=== PATIENT | female | born 1945 | race Two or more races ===

== ENCOUNTER 2017-02-20 18:53 | Inpatient (IN) | payer MEDICAID ==
[~2017-02-20] VITALS: Ht 157.5 cm; Wt 67.3 kg
[~2017-02-20 18:53] MED LIST: ACYCLOVIR800 MG PO; AMLODIPINE BESY10 M1 PO; ASPIR 8181 MG PO; DICLOFENAC SOD2.5 ML TOP; FLEXERIL10 MG PO; HYDROCODONE/ACE1 TA2 PO; HYDROCORTISONE11; LAC PO; MAC100 PO; NAPROXEN500 MG PO; NEU300 PO; NORCO1 TA2 PO; PEPCID40 MG PO; [UNRECOGNIZED DRUG - OTHER] OS
--- NOTE | 2017-02-20 19:29 | NUR ---
PT SITTING UP ON EDGE OF BED, AAOX4 WITH C/O PRESSURE LIKE CP 10/10 TO LT CHEST RADIATING TO LT SHOULDER. PT DENIES SOB OR DIZZINESS WITH PAIN. PT STATED HAVING PAIN COME INTERMITTANTLY X 1 WEEK. FAMILY AT BEDSIDE.
[2017-02-20 20:22] LABS: BASOPHIL % 0.4 % (0-2); PLATELET COUNT 302 x10^3mcL (130-400); RED CELL DISTRIBUTION WIDTH 14.5 % (11.5-14.5)
[2017-02-20 20:36] LABS: CALCIUM 9.1 mg/dL (8.5-10.1); CARBON DIOXIDE 28.2 mmol/L (21-32); CHLORIDE SERUM 104 mmol/L (98-107); CREATININE SERUM 0.8 mg/dL (0.6-1.0); GLUCOSE SERUM 118 mg/dL (74-106); POTASSIUM SERUM 4.6 mmol/L (3.5-5.1); SODIUM SERUM 140 mmol/L (136-145)
--- NOTE | 2017-02-20 20:40 | NUR ---
NITRO DRIP STARTED AT 10MCG WITH BP OF 183/102 (142).
[2017-02-20 20:41] LABS: ALKALINE PHOSPHATASE 73 U/L (46-116); ALT/SGPT 19 U/L (14-59); AST/SGOT 19 U/L (15-37); BILIRUBIN TOTAL 0.35 mg/dL (0.20-1.00); TOTAL PROTEIN, SERUM 7.8 g/dL (6.4-8.2)
--- NOTE | 2017-02-20 21:00 | NUR ---
NITRO TITRATED UP FROM 10MCG/MIN TO 15MCG/MIN. BP 172/113 MAP 138.
[2017-02-20 21:06] LABS: ALBUMIN 3.8 g/dL (3.4-5.0)
--- NOTE | 2017-02-20 21:22 | NUR ---
PER DR PANCHAL, INCREASE NITRO DRIP RATE TO 25MCG WITH PT BP NOTED 162/108 AT THIS TIME.
--- NOTE | 2017-02-20 21:30 | NUR ---
PT STATES TO INTERMITTENT PAIN RATING 5/[address] PANCHAL, D/C NITRO DRIP AND CONTINUE NITRO SUBLINGUAL Q5MIN UNTIL MAP IS BETWEEN 100-105.
--- NOTE | 2017-02-20 21:38 | NUR ---
PT FAMILY DOES NOT RECALL HOME MEDICATIONS. PER FAMILY, PT TAKES ASPIRIN AND BP MED.
--- NOTE | 2017-02-20 21:45 | NUR ---
REPORT GIVEN TO SHELBIE NOBLES
--- NOTE | 2017-02-20 21:56 | NUR ---
NO MORE NITRO TABS TO BE GIVEN. PT MAP NOW 101. OK FOR PT TO GO TO TELE FLOOR.
--- NOTE | 2017-02-20 22:01 | NUR ---
REC'D PT FROM ER VIA [facility]. PT IS AAOX4. TELE #16 SR. C/O 5/10 CHEST PAIN. RESP EVEN AND UNLABORED. NO SOB NOTED. TRACE EDEMA TO BLE. IV NOTED TO LFA. INTACT AND PATENT. ORIENTED PT TO CALL LIGHT. BED IN LOWEST POSITION. WILL ENDORSE TO PRIMARY RN.
[2017-02-20 22:14] VITALS: BP 151/84
[2017-02-20 22:19] VITALS: BP 151/84
[2017-02-21 00:01] VITALS: BP 139/76
--- NOTE | 2017-02-21 00:01 | NUR ---
Patients BP 139/74 (96), HR 62/min. Pt has Vasotec IV order but no parameter. Dr. Dow made aware of pts BP. Order not to give Vasotec at this time and order to check VS in 2hrs and to inform Dr. Dow. Primary RN Shikha made aware.
[2017-02-21] MEDS ORDERED: LISINOPRIL40 MG PO (01:13)
--- NOTE | 2017-02-21 01:50 | NUR ---
D-DIMER 899, DT SPELTE MADE AWARE. NO NEW ORDERS GIVEN. VITAL SIGNS TAKEN ES=894/74(84) , HR-58, R=20, O2 SAT=96% ON ROOM AIR. DENIES ANY PAIN/DISCOMFORT AT THIS TIME. ASSISTED TO BATHROOM FOR PERSONAL NEEDS. KEPT CLEAN AND DRY.
[2017-02-21 02:00] LABS: PHOSPHOROUS 3.5 mg/dL (2.5-4.9)
[2017-02-21 02:01] LABS: CHOLESTEROL/HDL RATIO 4.9
[2017-02-21 02:08] LABS: FREE T4 0.85 ng/dL (0.76-1.46); FREE THYROXINE INDEX 2.5 ug/dL (1.4-4.5); T4(THYROXINE) 7.8 ug/dL (4.7-13.3)
[2017-02-21 02:09] VITALS: BP 126/74
[2017-02-21 03:00] LABS: T3 TOTAL 1.06 ng/mL
[2017-02-21 05:34] VITALS: BP 129/74
[2017-02-21 06:25] LABS: BASOPHIL % 0.3 % (0-2); PLATELET COUNT 256 x10^3mcL (130-400); RED CELL DISTRIBUTION WIDTH 14.4 % (11.5-14.5)
[2017-02-21 06:32] LABS: CALCIUM 8.4 mg/dL (8.5-10.1); CARBON DIOXIDE 25.8 mmol/L (21-32); CHLORIDE SERUM 107 mmol/L (98-107); CREATININE SERUM 0.8 mg/dL (0.6-1.0); GLUCOSE SERUM 94 mg/dL (74-106); POTASSIUM SERUM 3.7 mmol/L (3.5-5.1); SODIUM SERUM 141 mmol/L (136-145)
--- NOTE | 2017-02-21 06:35 | NUR ---
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 INSTRUCTED TO COLLECT SPECIMENT FOR UA/UDS,, VERBALIZED UNDERSTANDING. DENIES ANY CHEST PAIN AT THIS TIME. APPARENTLY COMFORTABLE LYING IN BED. ALL NEEDS ATTENDED.
--- NOTE | 2017-02-21 07:40 | NUR ---
RC'D PT RESTING IN BED WITH NO APPARENT SIGNS OF DISTRESS. A/A/O/X4, SPEECH CLEAR AND APPROPRIATE. ON TELE 16 WITH NSR. PT REPORTS CHEST PAIN IN THE MORNING BUT DENIES AT THIS TIME. REPORTS INTERMITTENT CHEST PAIN AT TIMES. PALP PULSES, TRACE EDEMA ON BLE. RESPIRATIONS EQUAL AND UNLABORED. LUNGS CTA. ON RA, DENIES SOB. ABDOMEN SOFT AND NONTEDER. ACITVE BS. DENIES N/V. VOIDS FREELY, DENIES BURNING. GENERALIZED WEAKNESS. AMBULATORY WITH ASSIT. SKIN W/D/I. DENIES PAIN AT THIS TIME. IV PATENT AND INFUSING. BED IN LOW POSITION. EDUCATED ON USING CALL LIGHT WHEN NEEDING ASSISTANCE. CALL LIGHT IN REACH. WILL CONTINUE TO MONITOR.
--- NOTE | 2017-02-21 09:30 | NUR ---
MORNING MEDS NOT GIVEN DUE TO PT BEING NPO FOR CT. DR LOJA AWARE AND VERBALIZED OKAY TO HOLD AT THIS TIME.
--- NOTE | 2017-02-21 09:45 | NUR ---
HEPARIN DRIP STARTED PER DR TINSLEY ORDER. ELEVATED D-DIMER. LOADING DOSE OF 5400 UNITS. INITIAL IV INFUSION 1200 UNITS. SHELBIE HERRING AT BEDSIDE TO VERIFY AND COSIGN. PT TOLERATED WELL. PT AND FAMILY VERBALIZED NEED FOR HEPARIN PROTOCOL AT THIS TIME. BED IN LOW POSITION. CALL LIGHT IN REACH. FAMILY PRESENT AT BEDSIDE. WILL CONTINUE TO MONITOR.
[2017-02-21 09:52] VITALS: BP 148/75
[2017-02-21 13:00] VITALS: BP 147/86
[2017-02-21] MEDS ORDERED: LIPI10 PO (13:27)
[2017-02-21 13:31] VITALS: BP 148/75
--- NOTE | 2017-02-21 16:47 | NUR ---
PT PROVIDED WITH DC HOME INSTRUCTIONS. GIVEN MEDICATION EDUCATION. MADE AWARE PRESCRIPTIONS HAVE BEEN SENT TO PT'S SELECTED PHARMACY. MADE AWARE OF FOLLOW UP APPT WITH PCP. INSTRUCTED ON IMPORTANCE OF FOLLOWING MEDICATIONS PER DRS ORDERS. MADE AWARE OF WORSENING SIGNS AND SYMPTOMS TO RETURN TO ED OR REPORT TO PCP. PT VERBALIZED UNDERSTANDING OF INSTRUCTIONS. TELE AND IV DC'D, CATHETER INTACT. PT TRANSPORTED VIA WC TO THE LOBBY WITH ALL PERSONAL BELONGINGS IN HAND ACCOMPANIED BY REPORTING ANALYST AND FAMILY FREE OF ANY APPARENT DISTRESS.
== END 2017-02-21 16:47 | disposition home or self-care (01) | DRG 243 ==
LOC: ED 18:53 → DU 21:29
PROVIDERS: Emergency Medicine; ADMIT Family Medicine
DX: K21.9 Gastro-esophageal reflux disease without esophagitis (principal); E66.3 Overweight; I16.0 Hypertensive urgency; Z68.29 Body mass index [BMI] 29.0-29.9, adult; Z96.642 Presence of left artificial hip joint
CPT/HCPCS: 83880; 84439; 85378; 90658; J1644; J3490; J7030; Q0092; Q9967

== ENCOUNTER 2017-10-21 21:18 | Emergency (ER) | payer MEDICAID ==
[~2017-10-21 21:18] MED LIST changes: +LIPI10 PO; +LISINOPRIL40 MG PO
[2017-10-21 23:23] LABS: CALCIUM 9.3 mg/dL (8.5-10.1); CARBON DIOXIDE 29.5 mmol/L (21-32); CHLORIDE SERUM 103 mmol/L (98-107); CREATININE SERUM 0.9 mg/dL (0.6-1.0); GLUCOSE SERUM 104 mg/dL (74-106); POTASSIUM SERUM 3.6 mmol/L (3.5-5.1); SODIUM SERUM 139 mmol/L (136-145)
[2017-10-21 23:28] LABS: ALBUMIN 3.5 g/dL (3.4-5.0); ALKALINE PHOSPHATASE 92 U/L (46-116); ALT/SGPT 16 U/L (14-59); AST/SGOT 25 U/L (15-37); BASOPHIL % 0.4 % (0-2); BILIRUBIN TOTAL 0.26 mg/dL (0.20-1.00); PLATELET COUNT 272 x10^3mcL (130-400); TOTAL PROTEIN, SERUM 7.3 g/dL (6.4-8.2)
[2017-10-21 23:50] LABS: RED CELL DISTRIBUTION WIDTH 14.9 % (11.5-14.5)
[2017-10-22 00:09] LABS: microscopic required? YES; urine erythrocyte 1+ (NEGATIVE)
[2017-10-22 02:05] VITALS: BP 159/99
== END 2017-10-22 02:09 | disposition home or self-care (01) ==
LOC: ED 21:18
PROVIDERS: Emergency Medicine
DX: R05 Cough (principal); R06.02 Shortness of breath; R07.89 Other chest pain; I10 Essential (primary) hypertension
CPT/HCPCS: 83880; J1100; Q0092

== ENCOUNTER 2018-04-07 20:01 | Emergency (ER) | payer MEDICAID ==
[~2018-04-07] VITALS: Ht 162.6 cm; Wt 67.2 kg
[2018-04-07 20:21] VITALS: BP 145/87
== END 2018-04-07 22:11 | disposition left against medical advice (07) ==
LOC: ED 20:01
DX: Z53.21 Procedure and treatment not carried out due to patient leaving prior to being seen by health care provider (principal)

== ENCOUNTER 2018-05-13 18:28 | Emergency (ER) | payer MEDICAID ==
[~2018-05-13] VITALS: Ht 160 cm; Wt 67.1 kg
[2018-05-13 18:33] VITALS: Ht 160 cm; Wt 67.1 kg
[2018-05-13 20:11] VITALS: BP 146/85
== END 2018-05-13 20:11 | disposition home or self-care (01) ==
LOC: ED 18:28
DX: M79.642 Pain in left hand (principal); L40.9 Psoriasis, unspecified; G89.29 Other chronic pain; I10 Essential (primary) hypertension
CPT/HCPCS: Q0092

== ENCOUNTER 2018-06-13 14:58 | Inpatient (IN) | payer MEDICAID ==
[~2018-06-13] VITALS: Ht 157.5 cm; Wt 69.9 kg
[2018-06-13 16:06] VITALS: Ht 157.5 cm; Wt 69.9 kg
[2018-06-13 18:22] LABS: BASOPHIL % 0.6 % (0-2); PLATELET COUNT 311 x10^3mcL (130-400); RED CELL DISTRIBUTION WIDTH 14.3 % (11.5-14.5)
[2018-06-13 18:33] LABS: CALCIUM 8.8 mg/dL (8.5-10.1); CHLORIDE SERUM 102 mmol/L (98-107); CREATININE SERUM 0.9 mg/dL (0.6-1.0); GLUCOSE SERUM 113 mg/dL (74-106); SODIUM SERUM 141 mmol/L (136-145)
[2018-06-13 18:54] LABS: ALKALINE PHOSPHATASE 64 U/L (46-116); AST/SGOT 19 U/L (15-37); BILIRUBIN TOTAL 0.28 mg/dL (0.20-1.00); CHOLESTEROL 164 mg/dL (<200); HDL CHOLESTEROL 38 mg/dL (40-60); LIPASE 70 IU/L (73-393); T4(THYROXINE) 6.9 ug/dL (4.7-13.3); TOTAL PROTEIN, SERUM 7.8 g/dL (6.4-8.2)
[2018-06-13 18:55] LABS: ALBUMIN 3.3 g/dL (3.4-5.0); AMYLASE 203 U/L (25-115)
[2018-06-13 19:04] LABS: ALT/SGPT 18 U/L (14-59)
[2018-06-13] MEDS ORDERED: HYDROCHLOROTH12.5 M2 PO (19:19)
[2018-06-13] MEDS ORDERED: HYDROXYZINE HYD25 MG PO (19:20)
[2018-06-13 20:14] LABS: MAGNESIUM 2.3 mg/dL (1.8-2.4); PHOSPHOROUS 3.1 mg/dL (2.5-4.9)
[2018-06-13 20:21] LABS: UA SPECIFIC GRAVITY <=1.005 (1.005-1.035); microscopic required? YES; urine erythrocyte 1+ (NEGATIVE)
[2018-06-13 20:47] VITALS: BP 162/72
[2018-06-13 21:16] VITALS: BP 162/72
[2018-06-14 05:49] VITALS: BP 154/76
[2018-06-14 06:26] LABS: BASOPHIL % 0.2 % (0-2); PLATELET COUNT 280 x10^3mcL (130-400)
[2018-06-14 06:48] LABS: RED CELL DISTRIBUTION WIDTH 14.6 % (11.5-14.5)
[2018-06-14 07:30] LABS: CALCIUM 8.3 mg/dL (8.5-10.1); CARBON DIOXIDE 23.5 mmol/L (21-32); CHLORIDE SERUM 107 mmol/L (98-107); CREATININE SERUM 0.8 mg/dL (0.6-1.0); GLUCOSE SERUM 231 mg/dL (74-106); MAGNESIUM 2.2 mg/dL (1.8-2.4); PHOSPHOROUS 1.2 mg/dL (2.5-4.9); POTASSIUM SERUM 3.9 mmol/L (3.5-5.1); SODIUM SERUM 140 mmol/L (136-145)
[2018-06-14 08:00] LABS: AMYLASE 160 U/L (25-115)
[2018-06-14 09:41] VITALS: BP 148/81
[2018-06-14 13:18] VITALS: BP 140/77
[2018-06-14 16:32] VITALS: BP 123/72
[2018-06-14 21:03] VITALS: BP 166/76
[2018-06-15 05:52] LABS: BASOPHIL % 0.1 % (0-2); PLATELET COUNT 315 x10^3mcL (130-400)
[2018-06-15 05:54] VITALS: BP 121/76
[2018-06-15 06:39] LABS: CALCIUM 7.9 mg/dL (8.5-10.1); CARBON DIOXIDE 25.4 mmol/L (21-32); CHLORIDE SERUM 110 mmol/L (98-107); CREATININE SERUM 0.8 mg/dL (0.6-1.0); GLUCOSE SERUM 185 mg/dL (74-106); MAGNESIUM 2.2 mg/dL (1.8-2.4); POTASSIUM SERUM 3.7 mmol/L (3.5-5.1); SODIUM SERUM 146 mmol/L (136-145)
[2018-06-15 07:22] LABS: RED CELL DISTRIBUTION WIDTH 14.8 % (11.5-14.5)
[2018-06-15 09:29] VITALS: BP 126/80
[2018-06-15 14:00] VITALS: BP 139/76
[2018-06-15 16:53] VITALS: BP 134/63
[2018-06-15 21:10] VITALS: BP 148/71
[2018-06-16 05:22] VITALS: BP 165/78
[2018-06-16 06:24] LABS: BASOPHIL % 0.1 % (0-2); PLATELET COUNT 301 x10^3mcL (130-400)
[2018-06-16 06:48] LABS: CALCIUM 7.5 mg/dL (8.5-10.1); CARBON DIOXIDE 26.1 mmol/L (21-32); CHLORIDE SERUM 109 mmol/L (98-107); CREATININE SERUM 0.8 mg/dL (0.6-1.0); GLUCOSE SERUM 147 mg/dL (74-106); POTASSIUM SERUM 3.6 mmol/L (3.5-5.1); SODIUM SERUM 144 mmol/L (136-145)
[2018-06-16 07:21] LABS: RED CELL DISTRIBUTION WIDTH 14.9 % (11.5-14.5)
[2018-06-16] MEDS ORDERED: SYMBICORT1 AE2 INH (08:48)
[2018-06-16] MEDS ORDERED: ALBUD HHN (08:50)
[2018-06-16] MEDS ORDERED: LEVAQUIN750 MG PO (08:50)
[2018-06-16] MEDS ORDERED: MEDDP PO (08:51)
[2018-06-16] MEDS ORDERED: LEVAQUIN500 M1 PO (08:51)
[2018-06-16] MEDS ORDERED: ROBL PO (08:56)
[2018-06-16 09:00] VITALS: BP 165/78
[2018-06-16 09:36] VITALS: BP 177/88
== END 2018-06-16 12:15 | disposition home or self-care (01) | DRG 142 ==
LOC: ED 14:58 → DU 19:25
PROVIDERS: Emergency Medicine; ADMIT Internal Medicine
DX: J84.9 Interstitial pulmonary disease, unspecified (principal); J96.01 Acute respiratory failure with hypoxia; J18.9 Pneumonia, unspecified organism; E44.0 Moderate protein-calorie malnutrition; K74.60 Unspecified cirrhosis of liver; N39.0 Urinary tract infection, site not specified; E11.9 Type 2 diabetes mellitus without complications; J44.0 Chronic obstructive pulmonary disease with (acute) lower respiratory infection; J44.1 Chronic obstructive pulmonary disease with (acute) exacerbation; E87.6 Hypokalemia; I10 Essential (primary) hypertension; F41.9 Anxiety disorder, unspecified; Z68.28 Body mass index [BMI] 28.0-28.9, adult
CPT/HCPCS: 36600; 82962; 83880; 86480; 87804; J1956; J2920; J2930; J3480; J7030; J7613; J7620; J7644; Q0092

== ENCOUNTER 2018-12-30 10:56 | Emergency (ER) | payer SELFPAY ==
[~2018-12-30] VITALS: Ht 147.3 cm; Wt 64.4 kg
[~2018-12-30 10:56] MED LIST changes: +ALBUD HHN; +HYDROCHLOROTH12.5 M2 PO; +HYDROXYZINE HYD25 MG PO; +LEVAQUIN500 M1 PO; +LEVAQUIN750 MG PO; +MEDDP PO; +ROBL PO; +SYMBICORT1 AE2 INH
[2018-12-30 11:07] VITALS: Ht 147.3 cm; Wt 64.4 kg
[2018-12-30 13:03] VITALS: BP 123/84
== END 2018-12-30 13:03 | disposition home or self-care (01) ==
LOC: ED 10:56
DX: I10 Essential (primary) hypertension (principal); G89.29 Other chronic pain; M25.559 Pain in unspecified hip; Z98.890 Other specified postprocedural states